=== PATIENT | male | born 1975 | race Caucasian/White ===

== ENCOUNTER 2019-07-10 12:15 | Emergency (ER) | payer BC ==
[~2019-07-10] VITALS: Ht 188 cm; Wt 158.9 kg
[2019-07-10] MEDS ORDERED: XANAX0.5 MG (12:42)
[2019-07-10] MEDS ORDERED: SODIUM CHLORIDE 0.9% 1000ML 1,000 ML IV SCH (12:45)
[2019-07-10] MEDS ORDERED: MORPHINE SULFATE INJ 4 MG/ML INJ 1ML ONE (12:48)
[2019-07-10] MEDS ORDERED: SODIUM CHLORIDE 0.9% 50ML 50 ML ONE (12:56)
[2019-07-10] MEDS ORDERED: IOPAMIDOL 370 MG/ML 200 ML INFUS..BTL INJ ONE (12:56)
[2019-07-10] MEDS ORDERED: MORPHINE SULFATE INJ 4 MG/ML INJ 1ML IV ONE (13:00)
[2019-07-10] MEDS ORDERED: VENTOLIN HFA18 GM PO (13:48)
[2019-07-10] MEDS ORDERED: ULTRAM 50MG50 MG PO (13:48)
[2019-07-10] MEDS ORDERED: NAPROSYN500 MG PO (13:48)
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
[2019-07-10] MEDS ORDERED: COLACE100 MG PO (14:56)
[2019-07-10 14:58] VITALS: BP 124/77
== END 2019-07-10 15:22 | disposition home or self-care (01) ==
LOC: FSED 12:15
DX: S22.42XA Multiple fractures of ribs, left side, initial encounter for closed fracture (principal); S20.212A Contusion of left front wall of thorax, initial encounter; S30.1XXA Contusion of abdominal wall, initial encounter; S83.91XA Sprain of unspecified site of right knee, initial encounter; V86.59XA Driver of other special all-terrain or other off-road motor vehicle injured in nontraffic accident, initial encounter; Y93.53 Activity, golf; Y92.39 Other specified sports and athletic area as the place of occurrence of the external cause; F41.9 Anxiety disorder, unspecified
CPT/HCPCS: 70450; 71260; 72125; 74177; 80053; 81003; 85025; 96374; 99284; J2270; J7030; Q9967

== ENCOUNTER 2020-09-06 17:23 | Emergency (ER) | payer BC ==
[~2020-09-06] VITALS: Ht 188 cm; Wt 147.4 kg
[~2020-09-06 17:23] MED LIST: COLACE100 MG PO; NAPROSYN500 MG PO; ULTRAM 50MG50 MG PO; VENTOLIN HFA18 GM PO; XANAX0.5 MG
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
[2020-09-06] MEDS ORDERED: PENICILLIN G BENZATHINE LA 1.2 MU TBX IM STA (18:21)
[2020-09-06] MEDS ORDERED: DEXAMETHASONE 0.5 MG/5 ML ELIX PO STA (18:21)
--- NOTE | 2020-09-06 18:31 | Emergency Department Note ---
History of Present Illnes History of Present Illness Chief Complaint: General Medicine Complaints History of Present Illness This is a 45 year old male with history of recurrent strep infections here with sore throat. Patient has been tolerating his secretions, no respiratory distress. Denies any fever. Patient is otherwise a well with no complaints. . Historian: Patient Arrival Mode: Car Onset (how long ago): day(s) (4) Location: throat Quality: ache Radiation: Reports non-radiation Severity: moderate Onset quality: gradual Duration (how long): day(s) (4) Timing of current episode: constant Progression: worsening Chronicity: new Context: Reports recent illness Relieving factors: none Exacerbating factors: none Associated symptoms: Reports denies other symptoms Treatments prior to arrival: none Past Medical/Family History Physician Review I have reviewed the patient's past medical and family history. Any updates have been documented here. Past Medical History Recent Fever: No Clinical Suspicion of Infectio: No New/Unexplained Change in Ment: No Past Medical History: None Past Surgical History: None Other Surgery: hydrocele Social History Smoking Cessation: Never Smoker Counseling Performed: No Alcohol Use: None Any Illegal Drug Use: No Physically hurt or threatened: No Other Any Pre-Existing Lines (PICC,: No Review of Systems Review of Systems Constitutional: Reports no symptoms EENTM: Reports as per HPI Cardiovascular: Reports no symptoms Respiratory: Reports no symptoms Gastrointestinal: Reports no symptoms Genitourinary: Reports no symptoms Musculoskeletal: Reports no symptoms Integumentary: Reports no symptoms Neurological: Reports no symptoms Psychological: Reports no symptoms Endocrine: Reports no symptoms Hematological/Lymphatic: Reports no symptoms Physical Exam Related Data Allergies: Coded Allergies: No Known Allergies (Unverified , 07/10/19) Triage Vital Signs Vital Signs Date Time Temp Pulse Resp B/P (MAP) Pulse Ox O2 Delivery O2 Flow Rate FiO2 09/06/20 17:35 98.4 85 18 147/92 98 Room Air Vital signs reviewed: Yes Physical Exam CONSTITUTIONAL Constitutional: Present well-developed, Present well-nourished HENT HENT: Present normocephalic, Present atraumatic, Present nose normal, Present tonsillar excudate, Present other (no abscess ) HENT L/R: Present left ext ear normal, Present right ext ear normal EYES Eyes: Reports PERRL, Reports conjunctivae normal NECK Neck: Present ROM normal PULMONARY Pulmonary: Present effort normal, Present breath sounds normal CARDIOVASCULAR Cardiovascular: Present regular rhythm, Present heart sounds normal, Present capillary refill normal, Present normal rate GASTROINTESTINAL Abdominal: Present soft, Present nontender, Present bowel sounds normal GENITOURINARY Genitourinary: Present exam deferred SKIN Skin: Present warm, Present dry MUSCULOSKELETAL Musculoskeletal: Present ROM normal NEUROLOGICAL Neurological: Present alert, Present oriented x 3, Present no gross motor or sensory deficits PSYCHOLOGICAL Psychological: Present mood/affect normal, Present judgement normal Results Laboratory Laboratory Laboratory Tests Test 09/06/20 17:43 Group A Streptococcus Screen Positive (NEGATIVE) Assessment & Plan Medical Decision Making MDM Patient is a 45-year-old male with recurrent strep throat, currently with same symptoms, exam shows tonsillar exudates lymphadenopathy no stridor. We'll treat with antibiotics and dexamethasone. Assessment & Plan Final Impression: (1) Streptococcal infection (2) Strep throat Last Vital Signs Date Time Temp Pulse Resp B/P (MAP) Pulse Ox O2 Delivery O2 Flow Rate FiO2 09/06/20 17:35 98.4 85 18 147/92 98 Room Air Home Meds Active Scripts Docusate Sodium (COLACE) 100 Mg Cap, 100 MG PO BID for 10 Days, #20 CAP Prov:SHERLY HOFFMAN MD 07/10/19 Albuterol Sulfate (VENTOLIN HFA) 18 Gm Hfa.aer.ad, 2 INH PO QID PRN for cough or wheezing for 7 Days, #1 Prov:SHERLY HOFFMAN MD 07/10/19 Tramadol Hcl* (ULTRAM 50MG*) 50 Mg Tab, 50 MG PO TID PRN for pain for 5 Days, #15 TAB Prov:SHERLY HOFFMAN MD 07/10/19 Naproxen (NAPROSYN) 500 Mg Tablet, 500 MG PO BID PRN for pain for 7 Days, #15 Prov:SHERLY HOFFMAN MD 07/10/19 Reported Medications Alprazolam (XANAX) 0.5 Mg Tablet 07/10/19 Medications in the ED Penicillin G Benzathine 1,200,000 unit NOW STAT IM ; Start 09/06/20 at 18:21; Stop 09/06/20 at 18:22; Status UNV Dexamethasone 10 mg ONCE STAT PO ; Start 09/06/20 at 18:21; Stop 09/06/20 at 18:22; Status UNV SELENA GUZMÁN MD Sep 06, 2020 18:31
[2020-09-06] MEDS ORDERED: DEXAMETHASONE SOD PHOS 10 MG/1 ML VIAL IV ONE (18:45)
[2020-09-06] MEDS ORDERED: DEXAMETHASONE SOD PHOS 10 MG/1 ML VIAL ONE (18:53)
== END 2020-09-06 18:48 | disposition home or self-care (01) ==
LOC: ER 17:50
DX: J02.0 Streptococcal pharyngitis (principal)
CPT/HCPCS: 83518; 99282; J0561; J1100

== ENCOUNTER 2023-01-26 08:51 | Emergency (ER) | payer BC ==
[~2023-01-26] VITALS: Ht 188 cm; Wt 147.4 kg
[2023-01-26] MEDS ORDERED: PENICILLIN G BENZATHINE LA 1.2 MU TBX IM STA (09:04)
== END 2023-01-26 09:57 | disposition home or self-care (01) ==
LOC: ER 08:55
DX: J02.0 Streptococcal pharyngitis (principal)
CPT/HCPCS: 99283; J0561